=== PATIENT | female | born 1970 ===

== ENCOUNTER 2025-05-05 16:46 | Outpatient (AMB) | payer OTHER, SELFPAY ==
--- OUTSIDE RECORDS SUMMARY | 2025-05-05 17:50 | XMS_ITS ---
Author Name [facility] Organization Unknown Care Team Organization Name Specialty Phone Email Start Date End Da te [facility] BRITTANI PHILIP Primary [facility] 03/22/2023 05/05/2024 [facility] Citlaly Urbano Primary [facility] 09/25/2022
== END 2025-05-05 16:48 | disposition home or self-care (01) ==
LOC: HO.HMGAL 16:46
PROVIDERS: PCP Internal Medicine; Visit Provider Registered Nurse Emergency
DX: J30.89 Other allergic rhinitis (principal)
CPT/HCPCS: 95117; 95165

== ENCOUNTER 2025-05-25 13:27 | Outpatient (AMB) | payer OTHER, SELFPAY | END 2025-05-25 13:40 | disposition home or self-care (01) | LOC: HO.HMGAL 13:27 | PROVIDERS: PCP Internal Medicine; Visit Provider Registered Nurse Emergency | DX: J30.89 Other allergic rhinitis (principal) | CPT/HCPCS: 95117; 95165 ==

== ENCOUNTER 2025-06-24 11:03 | Outpatient (AMB) | payer OTHER, SELFPAY | END 2025-06-24 11:04 | disposition home or self-care (01) | LOC: HO.HMGAL 11:03 | PROVIDERS: PCP Internal Medicine; Visit Provider Registered Nurse Emergency | DX: J30.89 Other allergic rhinitis (principal) | CPT/HCPCS: 95117; 95165 ==

== ENCOUNTER 2025-07-15 16:29 | Outpatient (AMB) | payer OTHER, SELFPAY | END 2025-07-15 16:29 | disposition home or self-care (01) | LOC: HO.HMGAL 16:29 | PROVIDERS: PCP Internal Medicine; Visit Provider Registered Nurse Emergency | DX: J30.89 Other allergic rhinitis (principal) | CPT/HCPCS: 95117; 95165 ==

== ENCOUNTER 2025-08-05 15:49 | Outpatient (AMB) | payer OTHER, SELFPAY | END 2025-08-05 15:50 | disposition home or self-care (01) | LOC: HO.HMGAL 15:49 | PROVIDERS: PCP Internal Medicine; Visit Provider Registered Nurse Emergency | DX: J30.89 Other allergic rhinitis (principal) | CPT/HCPCS: 95117; 95165 ==

== ENCOUNTER 2025-08-26 16:23 | Outpatient (AMB) | payer OTHER, SELFPAY | END 2025-08-26 16:24 | disposition home or self-care (01) | LOC: HO.HMGAL 16:23 | PROVIDERS: PCP Internal Medicine; Visit Provider Registered Nurse Emergency | DX: J30.89 Other allergic rhinitis (principal) | CPT/HCPCS: 95117; 95165 ==